=== PATIENT | female | born 1965 | race Caucasian/White ===

== ENCOUNTER 2016-07-09 01:09 | Inpatient (IN) | payer BC ==
[~2016-07-09] VITALS: Ht 172.7 cm; Wt 96.8 kg
--- NOTE | 2016-07-09 04:25 | ED NURSING NOTES ---
Clinical Report - Nurses [facility] [address] [place] [address] 07/09/2016 1:09 Patient: VIN PENNY TRIAGE Triage time 01:17. Acuity: LEVEL 3. Chief Complaint: ABDOMINAL PAIN, NAUSEA and VOMITING and (Onset last night around 1800; worsening pain. States her grandsons have had colds. Aggravating/Alleviating factors none identified.). Alert. No acute distress. SEPSIS SCREEN: Sepsis Screen: negative. Infection suspected/documented. --01:25 Juan Simms R.N. 01:16 07/09/16. BP: 116/91 (regular adult cuff) taken on the left arm, via an automated monitor, while sitting. HR: 104. RR: 18 (regular, unlabored and normal). O2 saturation: 97% on room air. Temp: 98.3 F (oral). Pain level now: 01/24. --01:25 Juan Simms R.N. Weight: 90.7 kg stated. Height/Length: 68 inches Per Patient. BMI: 30.4. --01:23 Juan Simms R.N. Medications Vitamin D Oral. --01:23 Juan Simms R.N. Multivitamins Oral. --01:23 Juan Simms R.N. Hot flashes-antidepressants. --01:24 Juan Simms R.N. Medication/allergy information source: the patient. --01:25 Juan Simms R.N. Allergies Flagyl. Naproxen. --01:23 Juan Simms R.N. History Arrived by private vehicle. Historian: patient. Unaccompanied. Primary physician (Dr. Zuleyma Hung). This started last night. She has had burning, aching, constant abdominal pain. The pain is described as located in the central area of the abdomen and RLQ and associated with nausea. No chills, fever, sweating episodes, chest pain or difficulty breathing. No black stools, bloody stools, constipation, diarrhea or flank pain. No pelvic pain or vaginal bleeding or discharge. She has not had fatigue. Denies muscle aches. Treatment EQUAL OPPORTUNITY OFFICER: None. PAST MEDICAL HX: Immunizations: up-to-date. The patient has had a hysterectomy. Has not received seasonal influenza immunization. SOCIAL HX: Never smoker. No alcohol use or drug use. She has not traveled outside the [place] The patient was not exposed to MRSA. No infectious disease exposure. ABUSE ASSESSMENT: Abuse assessment: The patient was asked "Do you feel safe in your home?" and "Has anyone hurt you or threatened to hurt you?". No report of abuse. SELF HARM ASSESSMENT: A self harm assessment was performed. The patient answered "no" to the question "Do you have thoughts of harming or killing yourself?" and "Have you recently had thoughts about harming or killing others?". FALL RISK ASSESSMENT: Fall risk assessment completed. No fall risk identified. NUTRITIONAL RISK ASSESSMENT: The nutritional risk assessment revealed no deficiencies. FUNCTIONAL ASSESSMENT: Functional assessment: no impairments noted. LEARNING NEEDS ASSESSMENT: The learning needs assessment revealed no barriers. SKIN INTEGRITY ASSESSMENT: Skin integrity risk assessment completed. No skin integrity risk identified. --01:25 Juan Simms R.N. ( Last meal was homemade vegan pizza around 1830 (nausea was already there).). --01:28 Juan Simms R.N. PROBLEMS: Lumbar Strain. Myofascial Strain. Back Pain. Herpes Zoster. Saima Disease. Palpitations. Guillain-[place]. Immunizations. --:24 Juan Simms R.N. ADDITIONAL SURGERIES: Abdominal Hernia Repair. Cholecystectomy. Hernia Repair. Hysterectomy. --01:24 Juan Simms R.N. Assessment GENERAL / NEURO / PSYCH: Alert. Oriented X 4. Appears in no acute distress. Sawyer Coma Scale: 15- eyes open spontaneously (4); best verbal response- oriented x 4 (5); best motor response- obeys commands (6). Patient appears calm and cooperative. RESPIRATORY: Respirations not labored. SKIN: Skin is warm and dry. --01:25 Juan Simms R.N. Interventions ID and allergy band on patient. Patient ID band checked for patient name and birthdate: patient confirmed. Instructions provided to collect clean catch urine and patient verbalized understanding. Clean catch urine collected with return of eliana-colored cloudy urine; sample sent to lab for urinalysis. Specimen labeled in the presence of the patient. To treatment room. --01:25 Juan Simms R.N. PHYSICAL ASSESSMENT Ambulatory to room. GENERAL / NEURO / PSYCH: Alert. Oriented X 4. Appears in pain. RESPIRATORY: No respiratory distress. Respirations not labored. Breath sounds within normal limits. CVS: Heart sounds within normal limits. Pulses within normal limits. Capillary refill less than 2 seconds. GI / : Bilious emesis noted. (Food in emesis noted.). Obesity. Abdomen soft. Abdominal tenderness in the right upper quadrant, right side of the abdomen and right lower quadrant. ( Dullness to percussion diffuse right quadrant. Positive pain at [place]. Tympany to percussion in LUQ, LLQ. Negative Rovsing's, Mathis's. No hepatosplenomegaly.). SKIN: Skin is warm and dry. --01:46 Juan Simms R.N. NURSING PROGRESS NOTES The initial plan of care for this patient has been created This plan of care was discussed with the patient. Pulse oximeter and NIBP monitor placed on patient. Patient gowned. Reassurance given to the patient. Two patient identifiers checked. Call light placed in reach. Side rails up x 1. Bed placed in lowest position. Brakes of bed on. Patient ready for evaluation- ED physician notified. --:25 Juan Simms R.N. :07/09/2016 Site #1 started via IV in the left antecubital space with an 20g angiocath, with aseptic technique and good blood return; one attempt. Blood drawn: rainbow set. Labeled in the presence of the patient and sent to the lab. Saline lock flushed with 10 mL saline. --:36 Juan Simms R.N. :36 07/09/2016 Started bag #1 1000 mL IV Fluids IV NS (Saline); bolus of 1000 mL over 1 hour(s) then at 1000 mL/hr via site #1. Allergies verified and confirmed 5 rights. IV patency established. IV site checked: no pain, redness, or swelling. IV flushed thoroughly pre- and post-medication administration. Completed per protocol. --01:36 Juan Simms R.N. 01:37 07/09/2016 Zofran (Ondansetron HCl) IVP 4 mg given over 2 minute(s) via site #1. Allergies verified and confirmed 5 rights. IV patency established. IV site checked: no pain, redness, or swelling. IV flushed thoroughly pre- and post-medication administration. IVP given by RN. --01:37 Juan Simms R.N. 01:46 07/09/2016 Zofran (Ondansetron HCl) IVP 4 mg given over 2 minute(s) via site #1. Allergies verified and confirmed 5 rights. IV patency established. IV site checked: no pain, redness, or swelling. IV flushed thoroughly pre- and post-medication administration. IVP given by RN. --01:46 Juan Simms R.N. 02:19 07/09/16. BP: 128/80 (regular adult cuff) taken on the right arm, via an automated monitor, while sitting. HR: 83 (normal rate). RR: 18 (regular, unlabored and normal). O2 saturation: 100% on room air. --02:20 Juan Simms R.N. Overall patient status- she states feels the same. GI / : The patient reports abdominal pain is still present. --02:20 Juan Simms R.N. 02:33 07/09/2016 Morphine IVP 4 mg given over 2 minute(s) via site #1. Allergies verified, confirmed 5 rights and sedative warning given to the patient. IV patency established. IV site checked: no pain, redness, or swelling. IV flushed thoroughly pre- and post-medication administration. IVP given by RN. --02:33 Juan Simms R.N. 02:34 07/09/2016 PROMETHAZINE IVP 25 mg given over 2 minute(s) via site #1. Allergies verified and confirmed 5 rights. IV patency established. IV site checked: no pain, redness, or swelling. IV flushed thoroughly pre- and post-medication administration. IVP given by RN. --02:34 Juan Simms R.N. 03:46 Afrin 1 spray into each nare. --03:54 Cain Hopper R.N. 03:50. Patient ID band checked for patient name and birthdate: patient confirmed. Clean catch urine collected with return of yellow-colored clear urine; sample sent to lab for urinalysis. Specimen labeled in the presence of the patient. --03:53 Cain Hopper R.N. 03:52 Viscous Lidocaine into each nare. --03:54 Cain Hopper R.N. 03:59. 18 fr NG tube inserted in right nostril with no difficulty. Placement confirmed by auscultation and return of gastric contents. Return: yellow, brown fluid. Tube secured. Attached to low and intermittent suction. Patient tolerated procedure well. --04:08 Cain Hopper R.N. 04:07/09/16. BP: 127/64. HR: 67. RR: 16. O2 saturation: 96% on room air. --04:08 Cain Hopper R.N. The patient is calm and resting quietly. SKIN: Skin is warm and dry. Skin color within normal limits. --04:08 Cain Hopper R.N. 04:11 07/09/2016 Site #2 started via IV in the right hand with an 20g angiocath, with aseptic technique and good blood return; one attempt. Blood drawn: rainbow set. Labeled in the presence of the patient and sent to the lab. Saline lock flushed with 10 mL saline. --04:11 Juan Simms R.N. 04:07/09/2016 PROMETHAZINE IVP Response: no adverse reaction. --04:31 Juan Simms R.N. 04:07/09/2016 Morphine IVP Response: no adverse reaction. --04:31 Juan Simms R.N. 04:07/09/2016 Zofran IVP Response: no adverse reaction. --04:31 Juan Simms R.N. 04:07/09/2016 Zofran IVP Response: no adverse reaction. --04:31 uJan Simms R.N. 04:31 07/09/2016 IV Fluids IV NS Discontinued: bag #1 completed upon admission. Total amount infused: 1000 mL. IV patency established. IV site checked: no pain, redness, or swelling. IV flushed thoroughly. --04:31 Juan Simms R.N. 04:34 07/09/2016 Started bag #2 1000 mL IV Fluids IV NS (Saline); at 200 mL/hr over 5 hour(s) via site #1. Allergies verified and confirmed 5 rights. IV patency established. IV site checked: no pain, redness, or swelling. IV flushed thoroughly pre- and post-medication administration. Completed per protocol. --04:34 Juan Simms R.N. ( Lab at bedside drawing blood cultures.). --05:02 Juan Simms R.N. Patient ID band checked for patient name and birthdate: patient confirmed. Blood samples drawn by lab per protocol ; labeled in presence of the patient and sent to lab: blood culture (1st set). (BC 1st and 2nd set drawn.). --05:07 Juan Simms R.N. 05:13 07/09/2016 Started 3.375 gm of Zosyn (Piperacillin Sod-Tazobactam So) IVPB in bag #1 50 mL; at 50 mL/hr over 1 hour(s) via site #1; Allergies verified and confirmed 5 rights. IV patency established. IV site checked: no pain, redness, or swelling. IV flushed thoroughly pre- and post-medication administration. Completed per protocol. --05:13 Juan Simms R.N. 05:23 07/09/2016 IV Fluids IV NS Continued: upon admission at the rate of 200 mL/hr. 800 mL remaining bag #2. IV patency established. IV site checked: no pain, redness, or swelling. IV flushed thoroughly. --05:23 Juan Simms R.N. 05:24 07/09/2016 Zosyn IVPB Continued: upon admission at the rate of 100 mL/hr. 50 mL remaining bag #1. IV patency established. IV site checked: no pain, redness, or swelling. IV flushed thoroughly. --05:24 Juan Simms R.N. Intake & Output Gastric output: 300 mL; return noted as yellow and brown. --04:33 Juan Simms R.N. DISPOSITION / DISCHARGE Condition at departure: stable. The goals identified in the patient's plan of care were met. Admitted to Acute Care. Report was given to a nurse via a phone call. All questions were answered. Report was acknowledged and care was transferred. (CARLA Sol). DEEPTHI COMA SCORE: Deepthi Coma Scale: 15- eyes open spontaneously (4); best verbal response- oriented x 4 (5); best motor response- obeys commands (6). --04:59 Juan Simms R.N. 04:53 07/09/16. BP: 109/66 (regular adult cuff) taken on the right arm, via an automated monitor, while lying. HR: 53 (bradycardic). RR: 16 (regular, unlabored and normal). O2 saturation: 96% on room air. Temp: 98.5 F (oral). Pain level now: 11/24. --04:59 Juan Simms R.N. Transported via stretcher by tech with IV. Patient's personal items include: shirt, shoes and purse; items were placed in belongings bag, given to the patient and transported with the patient. Collection of belongings was witnessed by 1 nurse. --05:23 Juan Simms R.N. Departure time: 05:23. --05:23 Juan Simms R.N. Locked/Released at 07/09/2016 5:24 by Juan Simms R.N.
--- NOTE | 2016-07-09 04:25 | ED ORDER SUMMARY ---
..... Patient: VIN PENNY OrderSheet [facility] VisitID: [id number] [address] [place] [address] 51y, F Registration Date/Time: 07/09/2016 ORDER SHEET Weight: 90.7 kg (stated) Allergies: Flagyl, Naproxen GENERAL ORDERS: UA-Culture if indicated Urgent (01:24 07/09/2016 JQuivey R.N. per protocol) (Ack 1:31 Berenice ER Concrete Mixer Loader Truck Mounted) (1:36 JDeElena R.N.) CBC w Diff Urgent (:07/09/2016 Doron Barakat) (Ack 1:33 Berenice ER Concrete Mixer Loader Truck Mounted) (1:36 JDeElena R.N.) CMP Urgent (:07/09/2016 Doron Barakat) (Ack 1:33 Berenice ER Concrete Mixer Loader Truck Mounted) (1:36 ChrisElena R.N.) Amylase Urgent (01:07/09/2016 Doron Barakat) (Ack 1:33 Berenice ER Concrete Mixer Loader Truck Mounted) (1:36 JDeElena R.N.) Lipase Urgent (01:07/09/2016 Doron Barakat) (Ack 1:33 Berenice ER Concrete Mixer Loader Truck Mounted) (1:36 JDeElena R.N.) CT Abd/Pel w Cont (No) (17/0.6) Urgent (02:28 07/09/2016 Doron Barakat) (Ack 2:33 Berenice ER Concrete Mixer Loader Truck Mounted) (3:02 RFay) Blood Culture (No) (N/A) Urgent (03:32 07/09/2016 Doron Barakat) (Ack 3:42 Berenice ER Concrete Mixer Loader Truck Mounted) (4:09 JQuivey R.N.) PCT (Procalcitonin) Urgent (03:34 07/09/2016 Doron Barakat) (3:42 Berenice ER Concrete Mixer Loader Truck Mounted) Lactic Acid for Sepsis Protocol Urgent (03:34 07/09/2016 Doron Barakat) (Ack 3:42 Berenice ER Concrete Mix[employer]er Truck Mounted) (4:09 JQuivey R.N.) NPO (03:34 07/09/2016 Doron Barakat) (4:09 JQuivey R.N.) NG Tube (03:34 07/09/2016 Doron Barakat) (4:09 JQuivey R.N.) MEDICATION ORDERS: Promethazine IV 25 mg (HIGH ALERT MEDICATION, NOW) (02:28 07/09/2016 Doron Barakat) (2:34 JDeElena R.N.) IV FLUIDS: IV NS : initial bolus none -, then 1000 mL/hr for X1 (NOW) (01:30 07/09/2016 Doron Barakat) (1:36 JDeElena R.N.) Zofran IV 4 mg (NOW) (01:30 07/09/2016 Doron Barakat) (1:37 JDeElena R.N.) Zofran IV 4 mg (NOW) (01:46 07/09/2016 JRaheema R.N. verbal order read back to Doron Barakat) (1:46 JDeElena R.N.) Morphine IV 4 mg (HIGH ALERT MEDICATION, NOW) (02:27 07/09/2016 Doron Barakat) (2:33 JDeElena R.N.) Zosyn IV 3.375 gm/50mL (NOW) (03:39 07/09/2016 Doron Barakat) (Ack 4:34 JDeElena R.N.) (5:13 JDeElena R.N.) IV NS with Normal Saline 1 Liter: initial bolus none -, then 200 mL/hr for X1 (NOW) (04:34 07/09/2016 JDeElena R.N. verbal order read back to Doron Barakat) (4:34 JDeElena R.N.) ORDER SHEET NOTES: [Electronically signed by Isidro Hackett Dr. (04:45 07/09/2016)] [Electronically signed by Juan Simms R.N. (05:24 07/09/2016)] [Electronically locked/signed by Juan Simms R.N. (05:24 07/09/2016)]
--- NOTE | 2016-07-09 04:25 | ED ORDER SUMMARY ---
..... Patient: VIN PENNY OrderSheet [facility] VisitID: [id number] [address] [place] [address] 51y, F Registration Date/Time: 07/09/2016 ORDER SHEET Weight: 90.7 kg (stated) Allergies: Flagyl, Naproxen GENERAL ORDERS: UA-Culture if indicated Urgent (01:24 07/09/2016 JQuivey R.N. per protocol) (Ack 1:31 Berenice ER Pump Installation And Servicer) (1:36 JDeElena R.N.) CBC w Diff Urgent (:07/09/2016 Doron Barakat) (Ack 1:33 Berenice ER [employer] Installation And Servicer) (1:36 JDeElena R.N.) CMP Urgent (:07/09/2016 Doron Barakat) (Ack 1:33 Berenice ER [employer] Installation And Servicer) (1:36 ChrisElena R.N.) Amylase Urgent (01:07/09/2016 Doron Barakat) (Ack 1:33 Berenice ER [employer] Installation And Servicer) (1:36 JDeElena R.N.) Lipase Urgent (01:07/09/2016 Doron Barakat) (Ack 1:33 Berenice ER [employer] Installation And [employer]icer) (1:36 JDeElena R.N.) CT Abd/Pel w Cont (No) (17/0.6) Urgent (02:28 07/09/2016 Doron Barakat) (Ack 2:33 Berenice ER [employer] Installation And Servicer) (3:02 RFay) Blood Culture (No) (N/A) Urgent (03:32 07/09/2016 Doron Barakat) (Ack 3:42 Berenice ER [employer] Installation And [employer]icer) (4:09 JQuivey R.N.) PCT (Procalcitonin) Urgent (03:34 07/09/2016 Doron Barakat) (3:42 Berenice ER [employer] Installation And [employer]icer) Lactic Acid for Sepsis Protocol Urgent (03:34 07/09/2016 Doron Barakat) (Ack 3:42 Berenice ER [employer] Installation [employer]icer) (4:09 JQuivey R.N.) NPO (03:34 07/09/2016 Doron Barakat) (4:09 JQuivey R.N.) NG Tube (03:34 07/09/2016 Doron Barakat) (4:09 JQuivey R.N.) MEDICATION ORDERS: Promethazine IV 25 mg (HIGH ALERT MEDICATION, NOW) (02:28 07/09/2016 oDron Barakat) (2:34 JDeElena R.N.) IV FLUIDS: IV NS : initial bolus none -, then 1000 mL/hr for X1 (NOW) (01:30 07/09/2016 Doron Barakat) (1:36 JDeElena R.N.) Zofran IV 4 mg (NOW) (01:30 07/09/2016 Doron Barakat) (1:37 JDeElena R.N.) Zofran IV 4 mg (NOW) (01:46 07/09/2016 JRaheema R.N. verbal order read back to Doron Barakat) (1:46 JDeElena R.N.) Morphine IV 4 mg (HIGH ALERT MEDICATION, NOW) (02:27 07/09/2016 Doron Barakat) (2:33 JDeElena R.N.) Zosyn IV 3.375 gm/50mL (NOW) (03:39 07/09/2016 Doron Barakat) (Ack 4:34 JDeElena R.N.) (5:13 JDeElena R.N.) IV NS with Normal Saline 1 Liter: initial bolus none -, then 200 mL/hr for X1 (NOW) (04:34 07/09/2016 JDeElena R.N. verbal order read back to Doron Barakat) (4:34 JDeElena R.N.) ORDER SHEET NOTES: [Electronically signed by Isidro Hackett Dr. (04:45 07/09/2016)] [Electronically signed by Juan Simms R.N. (05:24 07/09/2016)] [Electronically locked/signed by Juan Simms R.N. (05:24 07/09/2016)]
--- NOTE | 2016-07-09 04:25 | ED CLINICAL REPORT ---
Clinical Report - Physicians/Mid Levels [facility] [address] [place] [address] 07/09/2016 1:09 Patient: VIN PENNY Time Seen: 01:18; initial patient contact. Arrived- By private vehicle. Historian- patient. HISTORY OF PRESENT ILLNESS Chief Complaint: ABDOMINAL PAIN. This started last night and is still present. It was abrupt in onset and has been constant. It is described as "pain" and cramping. No radiation. It is described as located in the right lower quadrant and in the periumbilical area. At its maximum, severity described as moderate. When seen in the E.D., severity described as moderate. Modifying factors. Not worsened by anything. Not relieved by anything. The patient has had nausea, loss of appetite and vomiting. No diarrhea. No recent travel. Similar symptoms previously: None. Recent medical care: Not recently seen/assessed. REVIEW OF SYSTEMS No constipation, difficulty with urination, pain with urination, fever or chills. All systems otherwise negative, except as recorded above. PAST HISTORY Lumbar Strain. Myofascial Strain. Back Pain. Herpes Zoster. Saima Disease. Palpitations. Guillain-[place]. SURGERIES: Abdominal Hernia Repair. Cholecystectomy. Hernia Repair. Hysterectomy. Medications: Hot flashes-antidepressants. Multivitamins Oral. Vitamin D Oral. Allergies: Flagyl. Naproxen. SOCIAL HISTORY Never smoker. No alcohol use or drug use. ADDITIONAL NOTES The nursing notes have been reviewed with agreement regarding the chief complaint, PMH and patient medications and allergies. PHYSICAL EXAM Vital Signs: 07/09/2016 01:16 BP: 116/91. HR: 104. RR: 18. O2 saturation: 97%. Temp: 98.3 F. Pain level now: 8/10. Have been reviewed. Hypertensive. Tachycardic. Respiratory rate normal. Temperature normal. Oxygen saturation normal. Appearance: Alert. Oriented X3. Patient in moderate distress. Eyes: Eyes normal inspection. ENT: Pharynx normal. CVS: Tachycardia. Heart sounds normal. Rhythm normal. Respiratory: No respiratory distress. Breath sounds normal. Abdomen: Soft. Moderate tenderness in the periumbilical area and right lower quadrant with guarding present. No rebound tenderness or obturator or psoas sign present. Abnormal bowel sounds: diminished. Back: Normal inspection. No CVA tenderness. Skin: Skin warm and dry. Normal skin color. No rash. Extremities: No lower extremity edema. Neuro: Oriented X 3. LABS, X-RAYS, AND EKG Abdominal CT: SBO which appears to be due to be due to an adhesion. Mesenteric and free fluid possibly c/w early ischemia. Ventral abd wall collection concerning for abscess. Study type: abdomen and pelvis. Abdominal CT performed with IV contrast. The study was independently viewed by me, interpreted by the radiologist and discussed with the radiologist. Interpretation time: 322. Laboratory Tests: UA-Culture if indicated: (LOTTIE: 07/09/2016 01:22) ( MsgRcvd 07/09/2016 01:47) Final results Test Result Flag Units (Reference) URINE COLOR YELLOW URINE APPEARANCE CLEAR URINE GLUCOSE NEGATIVE (NEGATIVE) URINE BILIRUBIN NEGATIVE (NEGATIVE) URINE KETONE TRACE (NEGATIVE) URINE SPECIFIC GRAVITY 1.020 (1.010-1.030) URINE PH 7.0 (5.0-8.0) URINE PROTEIN NEGATIVE (NEGATIVE) URINE UROBILINOGEN 0.2 EU/dL (0.2-1.0) URINE NITRITE NEGATIVE (NEGATIVE) URINE BLOOD TRACE-INTACT (NEGATIVE) URINE LEUK ESTERASE NEGATIVE (NEGATIVE) URINE RBC 0-1 rbc/hpf (0-1) URINE WBC 0-1 wbc/hpf (0-1) URINE EPITHELIAL CELLS 0-1 EPI/hpf (0-5) URINE BACTERIA NONE SEEN (NONE SEEN) URINE COMMENT CULT NOT INDICATED URINE CULTURES ARE SET-UP BASED ON THE FOLLOWING CRITERIA:POSITIVE NITRITEPOSITIVE LEUKOCYTE ESTERASEGREATER THAN 10 WHITE BLOOD CELLSMODERATE (2+) OR GREATER BACTERIA CBC w Diff: (LOTTIE: 07/09/2016 01:31) ( MsgRcvd 07/09/2016 01:43) Final results Test Result Flag Units (Reference) WHITE BLOOD COUNT 13.1 H K/uL (4.5-11.5) RED BLOOD COUNT 4.76 M/uL (4.00-5.20) HEMOGLOBIN 14.4 gm/dL (12.0-16.0) HEMATOCRIT 43.2 % (36.0-46.0) MEAN CELL VOLUME 91 fL (80-100) MEAN CORPUSCULAR HGB 30 pg (26-34) MEAN CORPUSCULAR HGB CONC 33 g/dL (31-37) RED CELL DISTRIBUTION WIDTH 13.0 % (11.6-14.8) PLATELET COUNT 305 K/uL (150-400) NEUTROPHIL % 74.1 % (50-75) LYMPH % 17.6 L % (25-40) MONO % 6.2 % (3-14) EOSINOPHIL % 1.4 % (0-4) BASOPHIL % 0.7 % (0-2) CMP: (LOTTIE: 07/09/2016 01:31) ( MsgRcvd 07/09/2016 01:56) Final results Test Result Flag Units (Reference) GLUCOSE 117 H mg/dL (70-110) BUN 17 mg/dL (7-18) CREATININE 0.6 mg/dL (0.6-1.3) Estimated GFR >60 mL/min Estimated GFR- >60 mL/min Note: Persistent reduction over 3 months in eGFR<60 mL/min/1.73 m2 defines CKD. Patients with eGFR values>=60 mL/min/1.73 m2 may also have CKD if evidence ofpersistent proteinuria. Additional information may be foundat www.kidney.org. SODIUM 145 mmol/L (136-145) POTASSIUM 3.7 mmol/L (3.5-5.1) CHLORIDE 105 mmol/L (98-107) CARBON DIOXIDE 29 mmol/L (21-32) CALCIUM 8.8 mg/dL (8.5-10.1) TOTAL PROTEIN 7.4 g/dL (6.4-8.2) ALBUMIN 3.8 g/dL (3.3-5.0) BILIRUBIN, TOTAL 0.4 mg/dL (0.0-1.0) ALKALINE PHOSPHATASE 49 U/L (46-116) AST (SGOT) 20 U/L (15-37) ALT (SGPT) 39 U/L (12-78) LIPASE 139 U/L (73-393) AMYLASE 39 U/L (25-115) . PROGRESS AND PROCEDURES Discussed case with on-call health care provider, (call returned 03:41 Dr. Mehta. Admit, NGT, and he will see in AM). Reviewed test results and need for additional work-up. Agreed upon decision to admit. Orders dictated to me. Health care provider will see patient in hospital. Disposition: Condition: good. Admit decision based on need for further evaluation, additional testing, IV hydration and antibiotics, pain control and stabilization of condition. CLINICAL IMPRESSION Partial small bowel obstruction associated with intestinal bands / adhesions. INSTRUCTIONS Follow-up: Screening today revealed the patient's blood pressure to be in the pre-hypertensive range. The patient was admitted and blood pressure will be managed during the admission. (Electronically signed by Isidro Hackett Dr. 07/09/2016 4:45)
--- NOTE | 2016-07-09 05:25 | ED MAR SUMMARY ---
..... Medication Administration Record [facility] [address] [place] [place] [address] Patient: VIN PENNY Visit ID: [id number] 51y, F Weight: 90.7 kg Height/Length: 68 in BMI: 30.4 ALLERGIES: Flagyl, Naproxen Start 01:36 07/09/2016 Juan Simms R.N., Stop 04:31 07/09/2016 Juan Simms R.N. Medication Administered: IV NS (SALINE), Dose: IV Fluids, Rate: 1000 mL/hr, Bolus: 1000 mL over 1 hour(s), Dispensed: 1000 mL bag, Site: #1 left AC. Medication Ordered: IV NS : initial bolus none -, then 1000 mL/hr for X1 (NOW). Given 01:37 07/09/2016 Juan Simms R.N. Medication Administered: ZOFRAN [IVP] (ONDANSETRON HCL), Dose: 4 mg IVP over 2 minute(s), Site: #1 left AC. Medication Ordered: Zofran IV 4 mg (NOW). Given 01:46 07/09/2016 Juan Simms R.N. Medication Administered: ZOFRAN [IVP] (ONDANSETRON HCL), Dose: 4 mg IVP over 2 minute(s), Site: #1 left AC. Medication Ordered: Zofran IV 4 mg (NOW). Given 02:33 07/09/2016 Juan Simms R.N. Medication Administered: MORPHINE [IVP], Dose: 4 mg IVP over 2 minute(s), Site: #1 left AC. Medication Ordered: Morphine IV 4 mg (HIGH ALERT MEDICATION, NOW). Given 02:34 07/09/2016 Juan Simms R.N. Medication Administered: PROMETHAZINE [IVP], Dose: 25 mg IVP over 2 minute(s), Site: #1 left AC. Medication Ordered: Promethazine IV 25 mg (HIGH ALERT MEDICATION, NOW). Start 04:34 07/09/2016 Juan Simms R.N., Continued Upon Admission 05:23 07/09/2016 DeElena, Juan, R.N. Medication Administered: IV NS (SALINE), Dose: IV Fluids over 5 hour(s), Rate: 200 mL/hr, Dispensed: 1000 mL bag, Site: #1 left AC. Medication Ordered: IV NS with Normal Saline 1 Liter: initial bolus none -, then 200 mL/hr for X1 (NOW). Start 05:13 07/09/2016 Juan Simms RNas, Continued Upon Admission 05:24 07/09/2016 Juan Simms RPreetiN. Medication Administered: ZOSYN [IVPB] (PIPERACILLIN SOD-TAZOBACTAM SO), Dose: 3.375 gm IVPB over 1 hour(s), Rate: 50 mL/hr, Dispensed: 50 mL bag, Site: #1 left AC. Medication Ordered: Zosyn IV 3.375 gm/50mL (NOW).
--- NOTE | 2016-07-09 05:25 | ED MED RECONCILIATION SUMMARY ---
Patient: VIN PENNY Medication Reconciliation Report [facility] VisitID: [id number] [address] [place] [address] 51y, F Registration Date/Time: 07/09/2016 Weight: 90.7 kg Height/Length: 68 in. BMI: 30.4 ALLERGIES: Flagyl, Naproxen The patient's Home Medications are listed below: THE FOLLOWING MEDICATIONS NEED TO BE RECONCILED: Hot flashes-antidepressants Multivitamins Oral Vitamin D Oral The source(s) of the original Home Medication information: patient The following Medications were given to the patient in the Emergency Department: IV NS IV Fluids bolus 1000 mL over 1 hour(s), then 1000 mL/hr, administered: 07/09/2016 1:36:00 AM Zofran [IVP] IVP 4 mg, administered: 07/09/2016 1:37:00 AM Zofran [IVP] IVP 4 mg, administered: 07/09/2016 1:46:00 AM Morphine [IVP] IVP 4 mg, administered: 07/09/2016 2:33:00 AM PROMETHAZINE [IVP] IVP 25 mg, administered: 07/09/2016 2:34:00 AM IV NS IV Fluids bolus 0, then 200 mL/hr, administered: 07/09/2016 4:34:00 AM Zosyn [IVPB] IVPB bolus 0, then 3.375 gm 50 mL/hr, administered: 07/09/2016 5:13:00 AM The following Medications were prescribed to the patient: None.
--- NOTE | 2016-07-09 05:25 | ED MED RECONCILIATION SUMMARY ---
Patient: VIN PENNY Medication Reconciliation Report [facility] VisitID: [id number] [address] [place] [address] 51y, F Registration Date/Time: 07/09/2016 Weight: 90.7 kg Height/Length: 68 in. BMI: 30.4 ALLERGIES: Flagyl, Naproxen The patient's Home Medications are listed below: THE FOLLOWING MEDICATIONS NEED TO BE RECONCILED: Hot flashes-antidepressants Multivitamins Oral Vitamin D Oral The source(s) of the original Home Medication information: patient The following Medications were given to the patient in the Emergency Department: IV NS IV Fluids bolus 1000 mL over 1 hour(s), then 1000 mL/hr, administered: 07/09/2016 1:36:00 AM Zofran [IVP] IVP 4 mg, administered: 07/09/2016 1:37:00 AM Zofran [IVP] IVP 4 mg, administered: 07/09/2016 1:46:00 AM Morphine [IVP] IVP 4 mg, administered: 07/09/2016 2:33:00 AM PROMETHAZINE [IVP] IVP 25 mg, administered: 07/09/2016 2:34:00 AM IV NS IV Fluids bolus 0, then 200 mL/hr, administered: 07/09/2016 4:34:00 AM Zosyn [IVPB] IVPB bolus 0, then 3.375 gm 50 mL/hr, administered: 07/09/2016 5:13:00 AM The following Medications were prescribed to the patient: None.
--- NOTE | 2016-07-09 05:25 | ED DISCHARGE INSTRUCTIONS ---
Patient: VIN PENNY General Instructions [facility] VisitID: [id number] [address] [place] [address] 51y, F Registration Date/Time: 07/09/2016 Partial small bowel obstruction associated with intestinal bands / adhesions. INSTRUCTIONS Follow-up: Screening today revealed the patient's blood pressure to be in the pre-hypertensive range. The patient was admitted and blood pressure will be managed during the admission. (Electronically signed by Isidro Hackett Dr. 07/09/2016 4:45)
--- NOTE | 2016-07-09 05:25 | ED MAR SUMMARY ---
..... Medication Administration Record [facility] [address] [place] [address] Patient: VIN PENNY Visit ID: [id number] 51y, F Weight: 90.7 kg Height/Length: 68 in BMI: 30.4 ALLERGIES: Flagyl, Naproxen Start 01:36 07/09/2016 Juan Simms R.N., Stop 04:31 07/09/2016 Juan Simms R.N. Medication Administered: IV NS (SALINE), Dose: IV Fluids, Rate: 1000 mL/hr, Bolus: 1000 mL over 1 hour(s), Dispensed: 1000 mL bag, Site: #1 left AC. Medication Ordered: IV NS : initial bolus none -, then 1000 mL/hr for X1 (NOW). Given 01:37 07/09/2016 Juan Smims R.N. Medication Administered: ZOFRAN [IVP] (ONDANSETRON HCL), Dose: 4 mg IVP over 2 minute(s), Site: #1 left AC. Medication Ordered: Zofran IV 4 mg (NOW). Given 01:46 07/09/2016 Juan Simms R.N. Medication Administered: ZOFRAN [IVP] (ONDANSETRON HCL), Dose: 4 mg IVP over 2 minute(s), Site: #1 left AC. Medication Ordered: Zofran IV 4 mg (NOW). Given 02:33 07/09/2016 Juan Simms R.N. Medication Administered: MORPHINE [IVP], Dose: 4 mg IVP over 2 minute(s), Site: #1 left AC. Medication Ordered: Morphine IV 4 mg (HIGH ALERT MEDICATION, NOW). Given 02:34 07/09/2016 Juan Simms R.N. Medication Administered: PROMETHAZINE [IVP], Dose: 25 mg IVP over 2 minute(s), Site: #1 left AC. Medication Ordered: Promethazine IV 25 mg (HIGH ALERT MEDICATION, NOW). Start 04:34 07/09/2016 Juan Simms R.N., Continued Upon Admission 05:23 07/09/2016 DeElena, Juan, R.N. Medication Administered: IV NS (SALINE), Dose: IV Fluids over 5 hour(s), Rate: 200 mL/hr, Dispensed: 1000 mL bag, Site: #1 left AC. Medication Ordered: IV NS with Normal Saline 1 Liter: initial bolus none -, then 200 mL/hr for X1 (NOW). Start 05:13 07/09/2016 Juan Simms RNas, Continued Upon Admission 05:24 07/09/2016 Juan Simms RPreetiN. Medication Administered: ZOSYN [IVPB] (PIPERACILLIN SOD-TAZOBACTAM SO), Dose: 3.375 gm IVPB over 1 hour(s), Rate: 50 mL/hr, Dispensed: 50 mL bag, Site: #1 left AC. Medication Ordered: Zosyn IV 3.375 gm/50mL (NOW).
--- NOTE | 2016-07-09 05:25 | ED DISCHARGE INSTRUCTIONS ---
Patient: VIN PENNY General Instructions [facility] VisitID: [id number] [address] [place] [address] 51y, F Registration Date/Time: 07/09/2016 Partial small bowel obstruction associated with intestinal bands / adhesions. INSTRUCTIONS Follow-up: Screening today revealed the patient's blood pressure to be in the pre-hypertensive range. The patient was admitted and blood pressure will be managed during the admission. (Electronically signed by Isidro Hackett Dr. 07/09/2016 4:45)
[2016-07-09] MEDS ORDERED: PAROXETINE HCL10 MG PO (06:04)
[2016-07-09 06:08] VITALS: BP 102/64
--- NOTE | 2016-07-09 06:31 | DIAGNOSTIC IMAGING REPORT ---
PROCEDURE: CT ABD/PELVIS WITH CONTRAST INDICATION: Abdominal pain. Nausea and vomiting. History of cholecystectomy, partial hysterectomy, adrenals surgery, hernia repair. TECHNIQUE: 125 ml of Isovue 300 were injected intravenously and axial images were obtained of the entire abdomen and pelvis with sagittal and coronal reformations. Preliminary report provided by Jeramie Hernandez MD ([facility]). COMPARISON: None. FINDINGS: ABDOMEN: There are moderately dilated loops of small bowel with transition point at the level of the proximal ileum. Appendix is normal. Postoperative changes of the ventral abdominal wall consistent with hernia repair. There is a 2 cm left periumbilical hernia containing intra-abdominal lipomatous tissue. No evidence of bowel herniation. Cholecystectomy (surgical clips). There is a moderately dilated common bile duct (1.7 cm) with a mild intrahepatic ductal dilation (to the level of the ampulla). Pancreas is normal. Right adrenal gland is not visualized. Left adrenal gland is enlarged (4.0 x 2.4 cm) with 40 HU. Spleen, kidneys, and aorta are normal. PELVIS: Status post hysterectomy. There are two cystic structures above the vaginal cuff (2.2, 1.2 cm) There is a small amount of free fluid in the pelvis. IMPRESSION: 1. Moderate partial or complete small bowel obstruction with transition point in the distal jejunum. 2. Associated small free fluid in the pelvis. 3. Status post ventral abdominal hernia repair with 2.2 cm hernia containing intra-abdominal lipomatous tissue. No evidence of bowel herniation. 4. Status post cholecystectomy. 5. Moderately dilated common bile duct (1.7 cm) with mild to moderate intrahepatic ductal dilation. Consider occult stricture, common duct stone, or neoplasm (less likely). Correlation with liver function studies is recommended. Comparison to prior outside studies may be of assistance. 6. 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 Consider left adrenal hypertrophy versus adrenal mass. Comparison with prior outside studies may be of assistance. Otherwise, consider follow-up CT or MR studies. 7. Status post hysterectomy and with two cystic areas above the vaginal cuff (2.2 cm, 1.2 cm) which could represent postoperative changes or bilateral ovarian cysts. Correlation with surgical history is recommended. All CT scans at this facility use dose modulation, iterative reconstruction, and/or weight-based dosing when appropriate to reduce radiation dose to as low as reasonably achievable.
[2016-07-09 10:01] VITALS: BP 93/55
--- NOTE | 2016-07-09 12:01 | CONSULTATION REPORT ---
DATE OF CONSULTATION: 07/09/2016 CHIEF COMPLAINT: 1. Abdominal pain and vomiting HISTORY OF PRESENT ILLNESS: The patient is a 51-year-old woman who presented to the emergency department yesterday. She reports that she started having some right lower quadrant and then mid abdominal pain about 5:30 in the evening, which shifted from the right lower quadrant to become more central. By 11:30 at night she had developed nausea and vomiting, causing her to present to the emergency department. Since being in the hospital, a nasogastric tube was placed and she was given IV hydration, and this morning she feels much better. Her abdominal pain has largely gone away. Her last bowel movement was yesterday in the evening, which she felt was normal. The patient decided to become vegan about 6 months ago and has been having pretty steady, normal bulky bowel movements without any problems since then. MEDICAL/SURGICAL HISTORY: Medical history is unremarkable. Past surgical history : TVH in 1994, open cholecystectomy in 1986, right adrenalectomy/laparoscopic-assisted in 2008, ventral hernia with mesh in 2010, and recurrent ventral hernia repair in 2012 without mesh. Right wrist surgery in 1987, left ulnar shortening 2014 for wrist pain. Gynecologic history: She is G1, P1. MEDICATIONS: 1. ALLERGIES: 1. SOCIAL HISTORY: The patient is in 1984 and now to her domestic partner. Smoking: She quit about 5 years ago, prior to that smoked about 1 pack per day. She rarely takes alcohol. 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 FAMILY HISTORY: Father had diabetes. Mother had diabetes. REVIEW OF SYSTEMS: A multipoint review of systems was obtained, and at least 12 systems were covered. The patient reports that all her other systems are negative other than the ones described in her HPI today. PHYSICAL EXAMINATION: VITAL SIGNS: Initial vital signs were blood pressure 116/91, heart rate of 104, respirations 18, O2 saturation 97%, temperature 98.3. GENERAL: The patient is alert and cooperative. She is oriented x3 and provides appropriate history. She moves all 4 extremities. Her cranial nerves are normal. HEENT: Her ears and nose demonstrate no gross external lesions. Eyes are equal. There is no icterus. NECK: Without palpable mass or thyromegaly. There are no bruits in the neck. CHEST: Clear to auscultation. HEART: Regular, without murmur or gallop. ABDOMEN: Reveals multiple scars, including a low transverse scar from pediatric hernia repair, a right subcostal scar from cholecystectomy, and a small transverse scar more centrally from her adrenalectomy. Her abdomen is nondistended. Bowel sounds are active. She has no localized areas of tenderness or guarding. There is no hepatosplenomegaly. The nasogastric output appears to be pretty much saliva and scant since the initial emptying of her stomach. IMPRESSION: 1. Small-bowel obstruction PLAN: I reviewed the CT scans and her lab tests. It appears at this time that she has a transition point in the right lower quadrant, but she also has low NG outputs and currently is quite asymptomatic. I have recommended that we proceed with a conservative course using nasogastric decompression, and we will observe her nasogastric output as well as possible production of stool. We will also administer a Fleet enema to clear the stool from the rectum that was seen on the CT scan. In the event that she continues to improve, we may consider Gastrografin small bowel study. I advised her that surgery would be reserved for the situation of a complete bowel obstruction or progression toward suspicion of bowel compromise.
[2016-07-09 14:15] VITALS: BP 106/62
[2016-07-09 18:16] VITALS: BP 111/65
[2016-07-09 22:40] VITALS: BP 127/66
[2016-07-10 02:32] VITALS: BP 113/72
[2016-07-10 07:03] VITALS: BP 107/69
--- NOTE | 2016-07-10 07:21 | Progress Note ---
Subjective General Pt. without new complaints, the NG is giving her naso pharyngeal irritation. She has mild RUQ discomfort but otherwise reports her abdomen is pain free. She has passed gas and passsed 2 normal stools. Constitutional Denies: Fever, Chills, Sweats. Gastrointestinal Abdominal Pain. Denies: Nausea, Vomiting. Physical Exam Vital Signs / I&Os Vital Signs Date Time Temp Pulse Resp B/P Pulse O2 O2 Flow FiO2 Ox Delivery Rate 07/10 0703 98.2 67 18 107/69 98 Room Air 07/10 0232 98.2 74 20 113/72 98 Room Air 07/09 2240 97.9 82 20 127/66 96 Room Air 07/09 1816 98.4 68 18 111/65 100 Room Air 07/09 1600 Room Air 07/09 1415 98.4 74 18 106/62 98 Room Air 07/09 1001 97.7 65 18 93/55 98 Room Air I&O 07/09 0800 07/09 1600 07/10 0000 Intake Total 0 2989 Output Total 780 1970 Balance -780 1019 General Appearance Alert, Oriented X3, Cooperative, No acute distress HEENT Atraumatic, PERRLA, EOMI, Moist mucous membranes Lungs Normal exam, Clear to auscultation, Normal air movement Abdomen Normal bowel sounds, No guarding, No rebound, No masses (mild discomfort in LUQ but no), mild discomfort in RUQ but no guarding Extremities Strength = lower ext's Neurological Normal gait, Normal speech, Normal tone Assessment and Plan Problem List 1. SBO (small bowel obstruction) Plan sbo is resolving clinically, will check NG residual due to 400 cc brownish production (pt. is on PPI) and if low post clamp residual will d/c but move slowly on diet.
[2016-07-10 10:29] VITALS: BP 115/66
[2016-07-10 15:21] VITALS: BP 108/60
[2016-07-10 18:39] VITALS: BP 113/63
[2016-07-10 22:36] VITALS: BP 113/71
[2016-07-11 02:25] VITALS: BP 93/51
[2016-07-11 07:03] VITALS: BP 101/62
--- NOTE | 2016-07-11 07:43 | Progress Note ---
Subjective General feels fine, no abdominal pain, ng out yesterday and no nausea or vomiting Constitutional Denies: Fever, Chills, Sweats. Gastrointestinal Denies: Nausea, Vomiting. Physical Exam Vital Signs / I&Os Vital Signs Date Time Temp Pulse Resp B/P Pulse O2 O2 Flow FiO2 Ox Delivery Rate 07/11 0703 98.2 65 18 101/62 100 Room Air 07/11 0225 98.2 57 14 93/51 98 Room Air 07/10 2236 98.2 66 14 113/71 97 Room Air 07/10 1839 98.2 64 16 113/63 100 Room Air 07/10 1521 97.5 70 18 108/60 100 Room Air 07/10 1029 98.2 101 18 115/66 97 Room Air I&O 07/10 0800 07/10 1600 07/11 0000 Intake Total 1706 0 988 Output Total 2100 925 975 Balance -394 -925 13 General Appearance Alert, Oriented X3, Cooperative, No acute distress HEENT Normal exam, Atraumatic, PERRLA, EOMI Abdomen Normal bowel sounds, Soft, No tenderness, No guarding Assessment and Plan Problem List 1. SBO (small bowel obstruction) Plan appears to have resolved, will try po liquids and advance as tolerated-if sx recurr then surgery or sbft
[2016-07-11 10:24] VITALS: BP 106/67
[2016-07-11 14:23] VITALS: BP 119/61
--- NOTE | 2016-07-11 17:45 | Provider's Discharge Care Plan ---
Problem, Goal, Plan Problem List 1. SBO (small bowel obstruction)
--- NOTE | 2016-07-11 17:45 | Provider's Discharge Care Plan ---
Problem, Goal, Plan Problem List 1. SBO (small bowel obstruction)
== END 2016-07-11 18:22 | disposition home or self-care (01) | DRG 390 ==
LOC: ED SRH 01:09 → ACUTE2 SRH 03:44 → TRANS SRH 03:44 → ACUTE2 SRH 05:24
PROVIDERS: ADMIT Surgery
PROC: 0D9670Z Drainage of Stomach with Drainage Device, Via Natural or Artificial Opening (ICD-10-PCS; principal; 2016-07-09)
DX: K56.5 Intestinal adhesions [bands] with obstruction (postinfection) (principal)
CPT/HCPCS: 87094; 90004; 90065; 90074; 90100; 92031; 92235; 92530; 93004; 95059